=== PATIENT | male | born 1970 | race Hispanic/Latino ===

== ENCOUNTER 2017-07-07 20:01 | Emergency (ER) | payer SELFPAY | END 2017-07-07 21:14 | disposition home or self-care (01) | LOC: ERS 20:01 | DX: N48.1 Balanitis (principal) | CPT/HCPCS: 99283 ==

== ENCOUNTER 2018-01-04 11:57 | Emergency (ER) | payer SELFPAY ==
[~2018-01-04 11:57] MED LIST: ISOVUE-370 76%-LOCM 1 ML ONE; Iopamidol 370 76% 50 ML VIAL FS ONE
--- NOTE | 2018-01-04 13:11 | RAD ---
ABDOMEN 2 VIEWS CHEST 1 VIEW: HISTORY: Chest and abdomen pain. Nausea and vomiting. FINDINGS: The left cardiac margin is predominantly obscured by severe elevation of the left hemidiaphragm with associated atelectasis at the left base. Pulmonary vasculature is slightly engorged. No evidence of free subdiaphragmatic gas. Gaseous distention of small bowel loops is apparent. Gas is visualized within the sigmoid colon. On the upright view, some mildly differential air fluid levels are apparent. IMPRESSION: 1. Differential air fluid levels and gaseous/fluid distention of the small bowel suggests the possib ility of a distal bowel obstruction. CT may be helpful for better characterization. 2. Marked elevation of the left hemidiaphragm. Indeterminate age. 3. Pulmonary vascular congestion. POS: [facility]
[2018-01-04 14:02] LABS: #Lymphocytes 2.5 thou/uL (1.20-3.40); #Neutrophils 9.8 thou/uL (1.40-6.50); %Basophils 0.1 % (0.0-1.0); %Eosinophils 0.1 % (0.0-10.0); %Lymphocytes 18.9 % (21.0-51.0); %Monocytes 7.7 % (0.0-10.0); %Neutrophils 73.3 % (42.0-75.0); Hemoglobin 14.4 g/dL (14.0-18.0); Mean Corpuscular HGB CONC 32.2 g/dL (32.0-36.0); Mean Corpuscular Hemoglobin 30.3 pg (27.0-31.0); Mean Corpuscular Volume 94.3 fL (78.0-98.0); Mean Platelet Volume 8.1 fL (7.4-10.4); Platelet Count 212 thou/uL (130-400); RBC Distribution Width 12.1 % (11.5-14.5); Red Blood Cell (RBC) Count 4.76 mill/uL (4.70-6.10); White Blood Cell (WBC) Count 13.3 thou/uL (4.8-10.8)
[2018-01-04 14:26] LABS: ALT (SGPT) 67 U/L (8-55); AST (SGOT) 26 U/L (5-34); Alkaline Phosphatase 65 U/L (40-150); Anion Gap 13 mmol/L (10-20); BUN (Urea Nitrogen) 19 mg/dL (8.9-20.6); Bilirubin, Total 0.6 mg/dL (0.2-1.2); Calc. Creatinine Clearance 0 mL/min (70-130); Calcium 9.9 mg/dL (7.8-10.44); Carbon Dioxide 22 mmol/L (22-29); Chloride 100 mmol/L (98-107); Estimated GFR-MDRD 42; Globulin 3.2 g/dL (2.4-3.5); Glucose 110 mg/dL (70-105); Lipase 6 U/L (8-78); Potassium 3.8 mmol/L (3.5-5.1); Protein, Total 7.2 g/dL (6.0-8.3); Sodium 131 mmol/L (136-145)
[2018-01-04] MEDS ORDERED: Morphine 4 MG/ML VIAL ONE ×2 (14:36→16:07)
[2018-01-04 14:57] LABS: Lactic Acid 1.2 mmol/L (0.5-2.2)
[2018-01-04] MEDS ORDERED: Ondansetron HCl/PF 4 MG/2 ML Vial ONE (16:05)
--- NOTE | 2018-01-04 17:43 | CT ---
CT ABDOMEN AND PELVIS WITH CONTRAST: HISTORY: Sudden onset of right-sided back pain and constipation for two days. The back pain radiates to the r ight abdomen and is exacerbated by walking. COMPARISON: None. TECHNIQUE: Multiple contiguous axial images were obtained in a CT of the abdomen and pelvis with contrast. Marlon nal reformats were performed. FINDINGS: There is a delayed left nephrogram. There is mild left hydronephrosis and hydroureter. There is a c alcification adjacent to the left ureterovesical junction that appears to be within the urinary bladd er. This calcification measures approximately 3 to 4 mm in size. An additional 4 mm calcification i s seen in the right kidney. There is a subcentimeter hypodensity in the right kidney, which represen ts a cyst. The liver, gallbladder, adrenal glands, spleen, and pancreas are unremarkable. No free a ir or free fluid is seen in the abdomen or pelvis. The large and small bowel are unremarkable. The appendix is normal. No abdominal or pelvic lymphade nopathy is present. IMPRESSION: 1. There is hydronephrosis and a delayed left nephrogram. This may be secondary to a recently passe d calcification, which appears in the urinary bladder. However, this could be at the left ureteroves ical junction. Correlate with symptoms. 2. Additional nonobstructing calcification in the left kidney. 3. Right renal cyst. POS: [facility]
[2018-01-04 18:00] LABS: Bilirubin Negative (Negative); Blood, Urine Negative (Negative); Clarity CLOUDY (Clear); Glucose, Urine (Dipstick) Negative (Negative); Leukocyte Negative (Negative); Nitrite Negative (Negative); Protein, Urine (Dipstick) Negative (Neg-Trace); Specific Gravity, Urine 1.016 (1.002-1.036); Urobilinogen 0.2 mg/dL (0.2-1.0)
[2018-01-04] MEDS ORDERED: Tamsulosin HCl 0.4 MG CAP PO SCH (18:30)
== END 2018-01-04 16:54 | disposition home or self-care (01) ==
LOC: ERS 11:57
DX: N13.2 Hydronephrosis with renal and ureteral calculous obstruction (principal)
CPT/HCPCS: 36415; 74022; 74177; 80053; 81003; 83605; 83690; 85025; 87086; 96361; 96374; 96375; 96376; J2270; J2405

== ENCOUNTER 2023-03-24 09:11 | Outpatient (CLI) | payer OTHER | END 2023-03-24 09:12 | disposition home or self-care (01) | LOC: CT 09:11 | PROVIDERS: ATTEND Internal Medicine Hematology & Oncology | DX: C18.5 Malignant neoplasm of splenic flexure (principal); R91.8 Other nonspecific abnormal finding of lung field; D73.89 Other diseases of spleen; K76.9 Liver disease, unspecified | CPT/HCPCS: 71260; 74177 ==